=== PATIENT | male | born 1955 | race Native Hawaiian/Other Pacific Islander ===

== ENCOUNTER 2018-01-07 12:11 | Outpatient (CLI) | payer BC | END 2018-01-07 20:57 | disposition home or self-care (01) | LOC: RAD 12:11 | DX: J01.00 Acute maxillary sinusitis, unspecified (principal); J20.9 Acute bronchitis, unspecified ==

== ENCOUNTER 2021-07-01 10:54 | Emergency (ER) | payer OTHER, MEDICARE ==
[~2021-07-01] VITALS: Ht 167.6 cm; Wt 99.8 kg
[2021-07-01 11:08] VITALS: TEMP 97.1
[2021-07-01 11:32] VITALS: BP 127/70
== END 2021-07-01 11:34 | disposition home or self-care (01) ==
LOC: ED 10:54 → EDSEX 10:54 → ED 11:34
DX: L50.1 Idiopathic urticaria (principal); R21 Rash and other nonspecific skin eruption
CPT/HCPCS: 96372; 99283; J2930; J3410

== ENCOUNTER 2021-07-13 10:52 | Outpatient (CLI) | payer OTHER, MEDICARE ==
[2021-07-13 11:21] LABS: PLATELET COUNT 205 K/uL (152-353)
== END 2021-07-13 19:25 | disposition home or self-care (01) ==
LOC: LABW 10:52
PROVIDERS: ATTEND Nurse Practitioner Family
DX: J20.9 Acute bronchitis, unspecified (principal)
CPT/HCPCS: 36415; 85027